=== PATIENT | female | born 1985 | race Caucasian/White ===

== ENCOUNTER 2017-01-04 19:41 | Emergency (ER) | payer OTHER ==
[~2017-01-04] VITALS: Ht 152.4 cm; Wt 58.1 kg
[~2017-01-04 19:41] MED LIST: ACET50TA PO; IBUP60TA PO; PRENTAB13 PO; RANI15TA PO
[2017-01-04] MEDS ORDERED: SILV-4 TOP (21:25)
[2017-01-04] MEDS ORDERED: ULTR50TA PO (21:25)
[2017-01-04] MEDS ORDERED: SILVER SULFADIAZINE 1% CR 50 GM JAR TOP ONE (21:30)
[2017-01-04 21:40] VITALS: BP 123/82
== END 2017-01-04 21:43 | disposition home or self-care (01) ==
LOC: M ED 21:12
DX: T22.212A Burn of second degree of left forearm, initial encounter (principal); T21.22XA Burn of second degree of abdominal wall, initial encounter; X12.XXXA Contact with other hot fluids, initial encounter; Y92.018 Other place in single-family (private) house as the place of occurrence of the external cause; Y93.89 Activity, other specified; Y99.8 Other external cause status